=== PATIENT | male | born 1950 | race Caucasian/White ===

== ENCOUNTER 2025-01-22 08:06 | Day surgery (SDC) | payer OTHER ==
[2025-01-22 08:31] LABS: EOS % 3.9 % (0-4.5); HEMATOCRIT 34.3 % (35.4-49); HEMOGLOBIN 10.5 GM/dL (11.7-16.9); LYMPH % 16.7 % (8-40); MCHC 30.5 g/dl (32.0-35.9); MEAN CELL VOLUME 78.8 fl (80-96); MEAN PLT VOLUME 7.7 fl (7.5-11.1); MONO % 14.3 % (3.8-10.2); NEUT % 64.1 % (42.8-82.8); PLATELET COUNT 112 10^3/uL (134-434); RBC 4.35 M/mm3 (4.00-5.60); RDW 19.6 % (11.9-15.9); WHITE BLOOD COUNT 4.3 K/mm3 (4.0-10.0)
[2025-01-22] MEDS: IRON SUCROSE INJECTION 200 MG in SODIUM CHLORIDE 100 ML IVPB ONE (08:34)
[2025-01-22 08:36] VITALS: RESP 20; TEMP 98.1
[2025-01-22 10:08] VITALS: BP 144/42; PULSE 55
== END 2025-01-22 09:20 | disposition home or self-care (01) ==
LOC: JONCNONCHE 08:06 → J7W 10:51
PROVIDERS: ATTEND Internal Medicine Hematology & Oncology
PROC: 3E033GC Introduction of Other Therapeutic Substance into Peripheral Vein, Percutaneous Approach (ICD-10-PCS; principal; 2025-01-22)
DX: D50.9 Iron deficiency anemia, unspecified (principal)
CPT/HCPCS: 36415; 85025; 96365; J1756

== ENCOUNTER 2025-02-05 09:14 | Day surgery (SDC) | payer OTHER ==
[2025-02-05] MEDS: IRON SUCROSE INJECTION 200 MG in SODIUM CHLORIDE 100 ML IVPB ONE (09:36)
[2025-02-05 10:07] VITALS: TEMP 97.9
[2025-02-05 10:39] VITALS: BP 141/46; PULSE 52; RESP 18
== END 2025-02-05 10:50 | disposition home or self-care (01) ==
LOC: J7W 09:14 → JONCCHEMO 09:14
PROVIDERS: ATTEND Internal Medicine Hematology & Oncology
PROC: 3E033GC Introduction of Other Therapeutic Substance into Peripheral Vein, Percutaneous Approach (ICD-10-PCS; principal; 2025-02-05)
DX: D50.9 Iron deficiency anemia, unspecified (principal)
CPT/HCPCS: 96365; J1756

== ENCOUNTER 2025-02-23 09:37 | Day surgery (SDC) | payer OTHER ==
[2025-02-23] MEDS: IRON SUCROSE INJECTION 200 MG in SODIUM CHLORIDE 100 ML IVPB ONE (10:07)
[2025-02-23 10:48] LABS: ABSOLUTE IMMATURE GRANULOCYTES 0.01 x10^3/uL (0.0-0.031); BASOPHILS # 0.03 x10^3/uL (0.01-0.08); EOSINOPHIL % 5.1 % (0.8-7.0); EOSINOPHILS # 0.19 x10^3/uL (0.04-0.54); HEMATOCRIT 37.9 % (40.1-51.0); HEMOGLOBIN 10.7 g/dL (13.7-17.5); MCHC 28.2 g/dl (32.3-36.5); MEAN CELL VOLUME 80.6 fl (79.0-92.2); MEAN PLT VOLUME 10.3 fl (9.4-12.4); MONOCYTE # 0.56 x10^3/uL (0.30-0.82); PLATELET COUNT 87 x10^3/uL (163-337); RDW 18.5 % (12.2-16.6)
[2025-02-23 16:36] VITALS: BP 130/58; PULSE 53; RESP 20; TEMP 98.1
== END 2025-02-23 11:00 | disposition home or self-care (01) ==
LOC: JONCNONCHE 09:37
PROVIDERS: ATTEND Internal Medicine Hematology & Oncology
PROC: 3E033GC Introduction of Other Therapeutic Substance into Peripheral Vein, Percutaneous Approach (ICD-10-PCS; principal; 2025-02-23)
DX: D50.9 Iron deficiency anemia, unspecified (principal)
CPT/HCPCS: 36415; 85025; 96365; J1756

== ENCOUNTER 2025-03-09 08:08 | Day surgery (SDC) | payer OTHER ==
[2025-03-09 09:27] LABS: ABSOLUTE IMMATURE GRANULOCYTES 0.02 x10^3/uL (0.0-0.031); BASOPHILS # 0.04 x10^3/uL (0.01-0.08); EOSINOPHIL % 4.2 % (0.8-7.0); EOSINOPHILS # 0.15 x10^3/uL (0.04-0.54); HEMATOCRIT 36.7 % (40.1-51.0); HEMOGLOBIN 10.4 g/dL (13.7-17.5); MCHC 28.3 g/dl (32.3-36.5); MEAN CELL VOLUME 81.6 fl (79.0-92.2); MEAN PLT VOLUME 9.8 fl (9.4-12.4); MONOCYTE # 0.48 x10^3/uL (0.30-0.82); MONOCYTE % 13.4 % (5.3-12.2); PLATELET COUNT 98 x10^3/uL (163-337); RDW 19.5 % (12.2-16.6)
[2025-03-09 09:49] LABS: POTASSIUM 3.6 mmol/L (3.5-5.1)
[2025-03-09 09:51] LABS: CALCIUM 9.1 mg/dL (8.5-10.1)
[2025-03-09 09:52] LABS: BLOOD UREA NITROGEN 9.8 mg/dL (7-18)
[2025-03-09 09:55] LABS: CREATININE 0.7 mg/dL (0.55-1.3)
[2025-03-09] MEDS: IRON SUCROSE INJECTION 200 MG in SODIUM CHLORIDE 100 ML IVPB ONE (10:00)
[2025-03-09 12:40] VITALS: BP 140/59; PULSE 69; RESP 20; TEMP 97.7
== END 2025-03-09 11:00 | disposition home or self-care (01) ==
LOC: JONCNONCHE 08:08
PROVIDERS: ATTEND Internal Medicine Hematology & Oncology
PROC: 3E033GC Introduction of Other Therapeutic Substance into Peripheral Vein, Percutaneous Approach (ICD-10-PCS; principal; 2025-03-09)
DX: D50.8 Other iron deficiency anemias (principal)
CPT/HCPCS: 36415; 80048; 82607; 82728; 83540; 83550; 85025; 96365; J1756

== ENCOUNTER 2025-04-17 08:24 | Day surgery (SDC) | payer OTHER ==
[2025-04-17] MEDS: IRON SUCROSE INJECTION 200 MG in SODIUM CHLORIDE 100 ML IVPB ONE (08:51)
[2025-04-17 09:07] VITALS: RESP 20; TEMP 97.9
[2025-04-17 09:26] LABS: ABSOLUTE IMMATURE GRANULOCYTES 0.01 x10^3/uL (0.0-0.031); BASOPHILS # 0.06 x10^3/uL (0.01-0.08); EOSINOPHIL % 2.4 % (0.8-7.0); EOSINOPHILS # 0.11 x10^3/uL (0.04-0.54); HEMATOCRIT 39.2 % (40.1-51.0); HEMOGLOBIN 11.7 g/dL (13.7-17.5); MCHC 29.8 g/dl (32.3-36.5); MEAN PLT VOLUME 10.1 fl (9.4-12.4); MONOCYTE # 0.63 x10^3/uL (0.30-0.82); MONOCYTE % 13.8 % (5.3-12.2); PLATELET COUNT 96 x10^3/uL (163-337); RDW 19.3 % (12.2-16.6)
[2025-04-17 09:30] VITALS: BP 125/58; PULSE 51
[2025-04-17 09:50] LABS: CHLORIDE 110 mmol/L (98-107); POTASSIUM 3.4 mmol/L (3.5-5.1); SODIUM 140 mmol/L (136-145)
[2025-04-17 09:53] LABS: ANION GAP 6 mmol/L (4-13); CALCIUM 8.6 mg/dL (8.5-10.1); CO2 25 mmol/L (21-32); GLUCOSE,RANDOM 146 mg/dL (74-106)
[2025-04-17 09:57] LABS: CREATININE 0.7 mg/dL (0.55-1.3); IRON SERUM 38 ug/dL (50-175); TOTAL IRON BINDING CAPACITY 362 ug/dL (250-450)
== END 2025-04-17 10:30 | disposition home or self-care (01) ==
LOC: J7W 08:24 → JONCNONCHE 08:24
PROVIDERS: ATTEND Internal Medicine Hematology & Oncology
PROC: 3E033GC Introduction of Other Therapeutic Substance into Peripheral Vein, Percutaneous Approach (ICD-10-PCS; principal; 2025-04-17)
DX: D50.9 Iron deficiency anemia, unspecified (principal)
CPT/HCPCS: 36415; 80048; 82607; 82728; 83540; 83550; 85025; 96365; J1756

== ENCOUNTER 2025-05-03 08:34 | Day surgery (SDC) | payer OTHER ==
[2025-05-03] MEDS: IRON SUCROSE INJECTION 200 MG in SODIUM CHLORIDE 100 ML IVPB ONE (09:08)
[2025-05-03 09:12] LABS: ABSOLUTE IMMATURE GRANULOCYTES 0.02 x10^3/uL (0.0-0.031); BASOPHILS # 0.04 x10^3/uL (0.01-0.08); EOSINOPHIL % 2.4 % (0.8-7.0); EOSINOPHILS # 0.11 x10^3/uL (0.04-0.54); HEMATOCRIT 40.1 % (40.1-51.0); MCHC 29.9 g/dl (32.3-36.5); MEAN PLT VOLUME 10.2 fl (9.4-12.4); MONOCYTE # 0.67 x10^3/uL (0.30-0.82); MONOCYTE % 14.5 % (5.3-12.2); PLATELET COUNT 96 x10^3/uL (163-337); RDW 18.8 % (12.2-16.6)
[2025-05-03 09:53] VITALS: RESP 20; TEMP 98.1
[2025-05-03 10:26] VITALS: BP 125/62; PULSE 63
== END 2025-05-03 10:00 | disposition home or self-care (01) ==
LOC: JONCNONCHE 08:34 → J7W 08:35 → JONCNONCHE 10:00
PROVIDERS: ATTEND Internal Medicine Hematology & Oncology
PROC: 3E033GC Introduction of Other Therapeutic Substance into Peripheral Vein, Percutaneous Approach (ICD-10-PCS; principal; 2025-05-03)
DX: D50.9 Iron deficiency anemia, unspecified (principal)
CPT/HCPCS: 36415; 85025; 96365; J1756

== ENCOUNTER 2025-06-07 08:43 | Day surgery (SDC) | payer OTHER ==
[2025-06-07] MEDS: IRON SUCROSE INJECTION 200 MG in SODIUM CHLORIDE 100 ML IVPB ONE (09:07)
[2025-06-07 09:29] LABS: ABSOLUTE IMMATURE GRANULOCYTES 0.01 x10^3/uL (0.0-0.031); BASOPHILS # 0.04 x10^3/uL (0.01-0.08); EOSINOPHIL % 2.2 % (0.8-7.0); EOSINOPHILS # 0.10 x10^3/uL (0.04-0.54); MCHC 30.0 g/dl (32.3-36.5); MEAN CELL VOLUME 82.9 fl (79.0-92.2); MEAN PLT VOLUME 10.4 fl (9.4-12.4); MONOCYTE # 0.66 x10^3/uL (0.30-0.82); MONOCYTE % 14.4 % (5.3-12.2); RDW 17.9 % (12.2-16.6)
[2025-06-07 16:59] VITALS: RESP 18; TEMP 98
[2025-06-07 17:01] VITALS: BP 129/54; PULSE 50
== END 2025-06-07 10:00 | disposition home or self-care (01) ==
LOC: JONCNONCHE 08:43 → J7W 08:44 → JONCNONCHE 10:00
PROVIDERS: ATTEND Internal Medicine Hematology & Oncology
PROC: 3E033GC Introduction of Other Therapeutic Substance into Peripheral Vein, Percutaneous Approach (ICD-10-PCS; principal; 2025-06-07)
DX: D50.9 Iron deficiency anemia, unspecified (principal)
CPT/HCPCS: 36415; 85025; J1756